=== PATIENT | female | born 1970 | race Caucasian/White ===

== ENCOUNTER 2017-01-27 22:19 | Emergency (ER) | payer OTHER ==
[~2017-01-27] VITALS: Ht 167.6 cm; Wt 133.0 kg
[2017-01-27] MEDS ORDERED: ALBUTEROL (22:32)
[2017-01-28 04:16] VITALS: BP 104/64
[2017-01-28] MEDS ORDERED: ACETAMINOPHEN TAB 650MG DOSE (2X325MG) PO ONE (06:15)
--- NOTE | 2017-01-28 08:10 | REP ---
Clinical: Trauma. Technique: AP, lateral, oblique and sunrise views of the right knee Findings: Nondisplaced fracture of the lateral tibial plateau with effusion. Underlying moderate tricompartmental degenerative changes. Impression: Lateral tibial plateau fracture and effusion. Signed by Adama Malagon MD 01/28/2017 08:01 A
== END 2017-01-28 06:31 | disposition home or self-care (01) ==
LOC: M ED 22:19
DX: S82.101A Unspecified fracture of upper end of right tibia, initial encounter for closed fracture (principal); S80.01XA Contusion of right knee, initial encounter; W01.0XXA Fall on same level from slipping, tripping and stumbling without subsequent striking against object, initial encounter; Y93.K1 Activity, walking an animal; Y92.830 Public park as the place of occurrence of the external cause; Y99.8 Other external cause status